=== PATIENT | female | born 1980 | race African-American/Black ===

== ENCOUNTER 2019-02-01 20:33 | Emergency (ER) | payer SELFPAY ==
[~2019-02-01] VITALS: Ht 162.6 cm; Wt 86.2 kg
[2019-02-01 20:50] VITALS: BP 127/77
--- NOTE | 2019-02-01 20:55 | NUR ---
PT TO CHAIR A, DR EISENBERG MADE AWARE OF PT STATUS.
--- NOTE | 2019-02-01 21:09 | NUR ---
PT MOVED TO BED 9
--- NOTE | 2019-02-01 21:14 | NUR ---
38/F PRESENTED TO ED BIB SELF STATES SHE FELT DIZZY AT WORK AND TOOK BS IT WAS 510, CAME TO ER AND NOW C/O HEADACHE, BS ON ARRIVAL IS 595, PT AWAKE AND ALERT. HEADACHE. 710 PAIN. STEADY GAIT. ABLE TO MAKE NEEDS KNOWN. STATES NEWLY DX DIABETIC AND DOES NOT TAKE MEDICATIONS PRESCRIBED DUE TO STILL ADJUSTING. RX METFORMIN 850MG, GLIPIZIDE 10MG
[2019-02-01] MEDS ORDERED: NACL 0.9% 1,000 ML IV ONE ×2 (21:20→22:45)
[2019-02-01 21:47] LABS: BASOPHILS % (AUTO) 0.4 % (0.0-2.0); EOSINOPHILS # (AUTO) 0.1 K/uL (0-0.4); EOSINOPHILS % (AUTO) 2.8 % (0.0-4.0); HEMATOCRIT 41.5 % (36-48); HEMOGLOBIN 13.8 g/dL (12.0-16.0); LYMPHOCYTES # (AUTO) 2.1 K/uL (2.5-16.5); LYMPHOCYTES % (AUTO) 40.3 % (20.5-51.1); MEAN CORPUSCULAR HEMOGLOBIN 31 pg (27-31); MEAN CORPUSCULAR HGB CONC 33 g/dL (33-37); MEAN CORPUSCULAR VOLUME 93.4 fL (80-94); MONOCYTES # (AUTO) 0.2 K/uL (0.8-1.0); MONOCYTES % (AUTO) 4.3 % (1.7-9.3); NEUTROPHILS # (AUTO) 2.8 K/uL (1.8-7.7); NEUTROPHILS % (AUTO) 52.2 % (42.2-75.2); PLATELET COUNT (AUTO) 303 K/uL (140-450); RED BLOOD CELL COUNT(AUTO) 4.44 MIL/uL (4.20-5.40); RED CELL DISTRIBUTION WIDTH 12.6 % (11.6-13.7); WHITE BLOOD COUNT (AUTO) 5.3 K/uL (4.8-10.8)
[2019-02-01 21:47] LABS: APPEARANCE,URINE CLEAR (CLEAR); BILIRUBIN,URINE NEGATIVE (NEGATIVE); BLOOD, URINE 2+ (NEGATIVE); COLOR,URINE YELLOW (YELLOW); LEUKOCYTE ESTERASE ,URINE NEGATIVE (NEGATIVE); NITRITE, URINE NEGATIVE (NEGATIVE); UGLUCOSE 3+ (NEGATIVE)
[2019-02-01 21:59] LABS: YEAST,URINE Few /HPF (None Seen)
[2019-02-01 22:03] LABS: RBC,URINE 0-5 /HPF (0-5)
--- NOTE | 2019-02-01 22:20 | NUR ---
PT LAYING IN BED. BOLUS FINISHED. NO SIGNS OF DISTRESS. FIANCE AT BEDSIDE
[2019-02-01 22:27] LABS: ALBUMIN 3.4 g/dL (3.4-5.0); ANION GAP 12.7 (8-16); CARBON DIOXIDE 27.9 mmol/L (21-32); CREATININE 1.3 mg/dL (0.6-1.3); POTASSIUM 4.6 mmol/L (3.5-5.1); TOTAL BILIRUBIN 0.2 mg/dL (0.0-1.0)
[2019-02-01] MEDS ORDERED: INSULIN REGULAR, HUMAN 100 UNIT/ML VIAL SUBQ ONE (22:45)
[2019-02-01] MEDS ORDERED: cefTRIAXone 1,000 MG VIAL ONE (22:50)
--- NOTE | 2019-02-01 23:22 | NUR ---
XRAY AT BEDSIDE
--- NOTE | 2019-02-02 01:25 | NUR ---
PT SLEEPING IN BED. ABLE TO MAKE NEEDS KNOWN. NO SIGNS OF DISTRESS.
--- NOTE | 2019-02-02 02:17 | NUR ---
BLOOD SUGAR 376 AT THIS TIME
[2019-02-02 03:08] VITALS: BP 130/76
== END 2019-02-02 03:08 | disposition home or self-care (01) ==
LOC: MED 20:33
DX: N39.0 Urinary tract infection, site not specified (principal); E11.65 Type 2 diabetes mellitus with hyperglycemia; R06.02 Shortness of breath; R07.9 Chest pain, unspecified; R51 Headache; Z88.1 Allergy status to other antibiotic agents
CPT/HCPCS: 36415; 71045; 80053; 81001; 81025; 82948; 85025; 87086; 93005; 96361; 96365; 96372; 99284; J0696; J1815; J7030; Q0092

== ENCOUNTER 2019-10-31 01:38 | Emergency (ER) | payer BC ==
[~2019-10-31] VITALS: Ht 162.6 cm; Wt 81.6 kg
[2019-10-31 01:58] VITALS: BP 137/65
--- NOTE | 2019-10-31 02:07 | NUR ---
BLOOD SUGAR 508. SIMRAN SMITH MADE AWARE.
[2019-10-31] MEDS ORDERED: NACL 0.9% 1,000 ML IV ONE (02:10)
--- NOTE | 2019-10-31 02:11 | NUR ---
PT TRIAGED AND SENT TO LOBBY.
[2019-10-31 03:10] LABS: ANION GAP 14.3 (8-16); CARBON DIOXIDE 27.6 mmol/L (21-32); CREATININE 1.4 mg/dL (0.6-1.3); POTASSIUM 4.9 mmol/L (3.5-5.1)
--- NOTE | 2019-10-31 03:17 | NUR ---
PT AMBULATED TO BED 10.
--- NOTE | 2019-10-31 03:17 | NUR ---
PT AMBULATED TO BED #10 W/ STEADY GAIT.
--- NOTE | 2019-10-31 03:20 | NUR ---
[facility] LAB REPORTING: GLUCOSE 628. SIMRAN MATTHEWS.
--- NOTE | 2019-10-31 03:20 | NUR ---
39 Y/O FEMALE PRESENTED TO ED C/O HIGH BLOOD SUGAR. PT STATES SHE HASN'T TAKEN HER DM MEDICATION FOR PAST 2 - 3 DAYS. PT STATES HER FBS IS USUALLY IN THE 400S OR HIGHER. PT STATES SHE ONLY CHECKS HER FBS "EVERY NOW AND THEN." PT +RODGERS, BLURRY VISION. SECONDARY C/O VAGINAL ITCHING/BURNING X 3 DAYS. PT STATES SHE WAS TAKEN A SHOWER LAST NIGHT AND SHE HAD SEVERE VAGINAL BURNING. THE PT THEN HAD HER SISTER LOOK AT HER VAGINA AND STATED IT LOOKED "RAW." PT + VAGINAL DISCHARGE , FOUL ODOR , "PASTY DISCHARGE". PT STATES SHE TOOK VAGISIL W/ NO RELIEF. PT DENIES DYSURIA , HEMATURIA. PT LMP 08/29/19. PT BREATHING EVEN AND UNLABORED. A/O X4. PT PLACED IN GOWN. PT RESTING IN BED , LOCKED AND IN LOWEST POSITION, HOB ELEVATED , SIDE RAILS X1. PMH: DM, GERD RX: GLYPISIDE, FARXGIA AX: AMOXICILLIN
--- NOTE | 2019-10-31 03:29 | NUR ---
URINE COLLECTED AND SENT TO LAB.
[2019-10-31] MEDS ORDERED: INSULIN REGULAR, HUMAN 100 UNIT/ML VIAL IVP ONE (03:35)
[2019-10-31 03:54] LABS: BILIRUBIN,URINE NEGATIVE (NEGATIVE); BLOOD, URINE TRACE-I (NEGATIVE); LEUKOCYTE ESTERASE ,URINE TRACE (NEGATIVE); NITRITE, URINE NEGATIVE (NEGATIVE); UGLUCOSE 3+ (NEGATIVE)
--- NOTE | 2019-10-31 03:54 | NUR ---
8UNITS HUMULIN R GIVEN VIA IVP. PT TOLERATED WELL. NADR
--- NOTE | 2019-10-31 04:00 | NUR ---
DR. SMITH AT BEDSIDE FOR EVALUATION AND WET MOUNT COLLECTED. 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
[2019-10-31 04:11] LABS: APPEARANCE,URINE CLEAR (CLEAR); COLOR,URINE YELLOW (YELLOW); RBC,URINE 0-5 /HPF (0-5); WBC,URINE 0-5 /HPF (0-5)
--- NOTE | 2019-10-31 04:31 | NUR ---
PT FBS 312 , ERMD MADE AWARE.
[2019-10-31 05:06] VITALS: BP 139/88
--- NOTE | 2019-10-31 05:06 | NUR ---
Patient discharged with v/s stable. Written and verbal after care instructions given and explained. Patient alert, oriented and verbalized understanding of instructions. Ambulatory with steady gait. All questions addressed prior to discharge. ID band removed. Patient advised to follow up with PMD. Rx of HYDROCORTISONE TOPICAL CREAM AND CLOTRIMAZOLE VAGINAL CREAM given. Patient educated on indication of medication including possible reaction and side effects. Opportunity to ask questions provided and answered.
[2019-11-03 06:07] LABS: CHLAMYDIA TRACHOMATIS AMP DNA Negative (Negative)
== END 2019-10-31 05:06 | disposition home or self-care (01) ==
LOC: MED 01:38
DX: N76.0 Acute vaginitis (principal); E11.65 Type 2 diabetes mellitus with hyperglycemia; Z88.1 Allergy status to other antibiotic agents
CPT/HCPCS: 36415; 80048; 81001; 81025; 82948; 87210; 96361; 96374; 99283; J1815; 87491; J7030

== ENCOUNTER 2020-12-25 11:13 | Emergency (ER) | payer BC ==
[~2020-12-25] VITALS: Ht 162.6 cm; Wt 81.6 kg
[2020-12-25 11:18] VITALS: BP 126/75
--- NOTE | 2020-12-25 11:26 | NUR ---
40YO FEMALE BIBS C/O 11/05 HEADACHE, BACK AND SIDE PAIN THAT STARTED THIS AM. FATIGUE X1 WEEK. CHILLS +, PATIENTS DENIES SOB, FEVER, N/V/D, LOC. DENIES PROBLEMS WITH URINATION. SKIN DRY AND INTACT, A&OX4, RR EVEN AND UNLABORED. PMH: DM2 ALLERGIES: AMOXICILLIN
--- NOTE | 2020-12-25 11:26 | NUR ---
Patient ambulated to bed 6.
[2020-12-25] MEDS ORDERED: MORPHINE SULFATE 4 MG/ML SYR IVP ONE (12:10)
[2020-12-25] MEDS ORDERED: NACL 0.9% 1,000 ML IV ONE (12:10)
--- NOTE | 2020-12-25 12:28 | NUR ---
LABS AND SHARRI SAMPLES COLLECTED WALKED TO LABS.
--- NOTE | 2020-12-25 12:30 | NUR ---
PATIENT TAKEN TO CT.
[2020-12-25 12:37] LABS: APPEARANCE,URINE CLEAR (CLEAR); BILIRUBIN,URINE NEGATIVE (NEGATIVE); BLOOD, URINE NEGATIVE (NEGATIVE); COLOR,URINE YELLOW (YELLOW); LEUKOCYTE ESTERASE ,URINE NEGATIVE (NEGATIVE); NITRITE, URINE NEGATIVE (NEGATIVE); PH,URINE 5.5 (5.0-9.0); UGLUCOSE 3+ (NEGATIVE)
--- NOTE | 2020-12-25 12:40 | NUR ---
PT BACK FROM CT.
[2020-12-25 12:42] LABS: BASOPHILS % (AUTO) 0.7 % (0.0-2.0); EOSINOPHILS # (AUTO) 0.1 K/uL (0-0.4); EOSINOPHILS % (AUTO) 1.8 % (0.0-4.0); HEMATOCRIT 40.1 % (36-48); LYMPHOCYTES # (AUTO) 2.2 K/uL (2.5-16.5); LYMPHOCYTES % (AUTO) 34.6 % (20.5-51.1); MEAN CORPUSCULAR HEMOGLOBIN 31 pg (27-31); MEAN CORPUSCULAR HGB CONC 35 g/dL (33-37); MEAN CORPUSCULAR VOLUME 89.9 fL (80-94); MONOCYTES # (AUTO) 0.3 K/uL (0.8-1.0); MONOCYTES % (AUTO) 5.3 % (1.7-9.3); NEUTROPHILS # (AUTO) 3.7 K/uL (1.8-7.7); NEUTROPHILS % (AUTO) 57.6 % (42.2-75.2); PLATELET COUNT (AUTO) 327 K/uL (140-450); RED BLOOD CELL COUNT(AUTO) 4.46 MIL/uL (4.20-5.40); RED CELL DISTRIBUTION WIDTH 12.7 % (11.6-13.7); WHITE BLOOD COUNT (AUTO) 6.4 K/uL (4.8-10.8)
--- NOTE | 2020-12-25 12:46 | NUR ---
PATIENT GIVEN MORPHINE 4MG IVP FOR PAIN.
[2020-12-25 12:53] LABS: ALBUMIN 3.7 g/dL (3.4-5.0); ANION GAP 11.4 (8-16); CARBON DIOXIDE 26.5 mmol/L (21-32); CREATININE 1.1 mg/dL (0.6-1.3); POTASSIUM 3.9 mmol/L (3.5-5.1); TOTAL BILIRUBIN 0.3 mg/dL (0.0-1.0)
[2020-12-25] MEDS ORDERED: DOCU-299 PO (13:29)
[2020-12-25] MEDS ORDERED: IBUP-1842 PO (13:29)
--- NOTE | 2020-12-25 14:10 | NUR ---
Patient discharged with v/s stable. Written and verbal after care instructions given and explained. Patient alert, oriented and verbalized understanding of instructions. Ambulatory with steady gait. All questions addressed prior to discharge. ID band removed. Patient advised to follow up with PMD. Rx of Docusate sodium, Ibuprofen given. Patient educated on indication of medication including possible reaction and side effects. Opportunity to ask questions provided and answered.
== END 2020-12-25 14:10 | disposition home or self-care (01) ==
LOC: MED 11:13
DX: K59.00 Constipation, unspecified (principal); Z20.822 Contact with and (suspected) exposure to COVID-19; G44.201 Tension-type headache, unspecified, intractable; E11.9 Type 2 diabetes mellitus without complications; K21.9 Gastro-esophageal reflux disease without esophagitis; Z88.1 Allergy status to other antibiotic agents; Z79.899 Other long term (current) drug therapy
CPT/HCPCS: 36415; 74176; 80053; 81003; 81025; 83605; 83690; 85025; 87040; 87426; 96361; 96374; 99284; J2270; J7030

== ENCOUNTER 2021-01-23 22:58 | Emergency (ER) | payer BC, MEDICAID ==
[~2021-01-23] VITALS: Ht 162.6 cm; Wt 81.6 kg
[~2021-01-23 22:58] MED LIST: DOCU-299 PO; IBUP-1842 PO
[2021-01-23 23:15] VITALS: BP 121/90
--- NOTE | 2021-01-23 23:18 | NUR ---
TO BED AMBULATORY
--- NOTE | 2021-01-23 23:40 | NUR ---
PT BIB SELF FOR C/C RIGHT BREAST PAIN X 3 DAYS. PT REPORTS SHARP, BURNING, CONTINUOUS PAIN TO NIPPLE AREA. NO NOTED SWELLING OR REDNESS TO SITE, NO LUMPS FELT UPON PALPATION. REPORTS LAST MAMMOGRAM WAS "YEARS AGO." PT PLACED IN GOWN. MED HX: DM TYPE 2 ALLERGIES: AMOXICILLIN
--- NOTE | 2021-01-23 23:55 | NUR ---
Dr. Felipe examining patient.
[2021-01-24] MEDS ORDERED: KETOROLAC 30 MG/ML VIAL IM ONE
--- NOTE | 2021-01-24 00:10 | NUR ---
PT AMBULATED TO RESTROOM WITH STEADY AND EVEN GAIT FOR URINE COLLECTION.
--- NOTE | 2021-01-24 00:34 | NUR ---
ULTRASOUND AT BEDSIDE.
--- NOTE | 2021-01-24 02:18 | NUR ---
ERMD AT BEDSIDE.
[2021-01-24] MEDS ORDERED: IBUP-2213 PO (02:34)
[2021-01-24 02:40] VITALS: BP 113/63
== END 2021-01-24 02:40 | disposition home or self-care (01) ==
LOC: MED 22:58
DX: N64.4 Mastodynia (principal); E11.9 Type 2 diabetes mellitus without complications
CPT/HCPCS: 76641; 81025; 96372; 99284; J1885; Q0092

== ENCOUNTER 2021-04-24 11:11 | Emergency (ER) | payer BC, MEDICAID ==
[~2021-04-24] VITALS: Ht 160 cm; Wt 82.6 kg
[~2021-04-24 11:11] MED LIST changes: +IBUP-2213 PO
[2021-04-24 11:34] VITALS: BP 116/78
--- NOTE | 2021-04-24 11:38 | NUR ---
md juárez assessing pt in triage at this time
[2021-04-24] MEDS ORDERED: PROM118S5 PO (12:46)
[2021-04-24] MEDS ORDERED: PHEN177S23 PO (12:46)
[2021-04-24] MEDS ORDERED: NAPR-54 PO (12:46)
[2021-04-24 13:45] VITALS: BP 114/70
--- NOTE | 2021-04-24 13:46 | NUR ---
Patient discharged with v/s stable. Written and verbal after care instructions given and explained. Patient verbalized understanding. Ambulatory with steady gait. All questions addressed prior to discharge. Advised to follow up with PMD.
== END 2021-04-24 13:46 | disposition home or self-care (01) ==
LOC: MED 11:11
DX: J06.9 Acute upper respiratory infection, unspecified (principal); Z20.822 Contact with and (suspected) exposure to COVID-19; E11.9 Type 2 diabetes mellitus without complications; Z88.1 Allergy status to other antibiotic agents; Z79.899 Other long term (current) drug therapy
CPT/HCPCS: 71045; 87804; 99284

== ENCOUNTER 2021-05-04 08:16 | Emergency (ER) | payer MEDICAID ==
[~2021-05-04] VITALS: Ht 162.6 cm; Wt 80.3 kg
[~2021-05-04 08:16] MED LIST changes: +NAPR-54 PO; +PHEN177S23 PO; +PROM118S5 PO
[2021-05-04 08:36] VITALS: BP 132/78
[2021-05-04] MEDS ORDERED: ALBU0.0912 IH (16:04)
[2021-05-04] MEDS ORDERED: AZIT250T4 PO (16:04)
[2021-05-04] MEDS ORDERED: SUD30 PO (16:04)
--- NOTE | 2021-05-04 17:06 | NUR ---
Patient discharged with v/s stable. Written and verbal after care instructions ABOUT COVID given and explained. Patient alert, oriented and verbalized understanding of instructions. Ambulatory with steady gait. All questions addressed prior to discharge. ID band removed. Patient advised to follow up with PMD. Rx of ALBUTEROL, ZITHROMAX PACK, AND SUDAFED given. Patient educated on indication of medication including possible reaction and side effects. Opportunity to ask questions provided and answered.
== END 2021-05-04 17:06 | disposition home or self-care (01) ==
LOC: MED 08:16
DX: U07.1 COVID-19 (principal); B34.9 Viral infection, unspecified; J45.909 Unspecified asthma, uncomplicated; E11.9 Type 2 diabetes mellitus without complications; Z79.899 Other long term (current) drug therapy; Z79.2 Long term (current) use of antibiotics; Z79.51 Long term (current) use of inhaled steroids; Z79.1 Long term (current) use of non-steroidal anti-inflammatories (NSAID); Z88.0 Allergy status to penicillin
CPT/HCPCS: 87426; 99283; U0003